=== PATIENT | female | born 1960 | race Caucasian/White ===

== ENCOUNTER 2016-10-01 13:58 | Inpatient (IN) | payer OTHER ==
--- NOTE | ~2016-10-01 | PN ---
Unit #: [id number] #: [id number] Patient: VASQUEZ WOODWARD [id number] [facility] [address] [place] [address] [id number] I MR#: [id number] NAME: VASQUEZ WOODWARD ROOM: P251 Age: 55 Sex: F Admission Date: 10/01/2016 : 1960 Attending Physician: Paolo Nathan M.D. Admitting Physician: Paolo Nathan M.D. Primary Care Physician: Primary Care Physician Etelvina AGUAYO NOTES DATE OF SERVICE 10/03/16 DISCUSSION Ms. Cobb is a 55-year-old female seen on 10/03/16. Patient interviewed, chart reviewed, I obtained information from nursing staff. Patient reports that she is still feeling confused, guarded, paranoid, isolative. Patient denied any other complaint. Patient compliant with medication. No agitation, aggression. COMPLETE REVIEW OF SYSTEMS Unremarkable. MENTAL STATUS EXAMINATION GENERAL APPEARANCE: Patient moderately obese, dressed casually. ATTENTION SPAN AND CONCENTRATION: Poor. Oriented in place and person. MOOD AND AFFECT: Labile. SPEECH: Monotone, slow. THOUGHT PROCESS: Circumstantial. Patient denied any thoughts of harming self or others, but somewhat guarded. RECENT AND REMOTE MEMORY: Poor. INSIGHT AND JUDGMENT: Poor. DIAGNOSIS Bipolar mood disorder, NOS ASSESSMENT/PLAN Advised to continue with current medication and therapeutic protocol. If needed, consider further adjustment in medication. Dictated by... Cony Cali/estiven TD: 10/05/2016 10:22 JOB #: [id number] Unit #: [id number] #: [id number] Patient: VASQUEZ WOODWARD HARLAN PROGRESS NOTES Page 1 of 1 X Paolo Nathan MD X PROGRESS NOTE
--- NOTE | ~2016-10-01 | PN ---
Unit #: [id number] #: [id number] Patient: VASQUEZ WOODWARD [id number] [facility] [address] [place] [address] [id number] MR#: [id number] NAME: VASQUEZ WOODWARD ROOM: P251 Age: 55 Sex: F Admission Date: 10/01/2016 : 1960 Attending Physician: Paolo Nathan M.D. Admitting Physician: Paolo Nathan M.D. Primary Care Physician: Primary Care Physician No HARLAN PROGRESS NOTES DATE 10/06/2016 DISCUSSION Ms. Cobb is a 55-year-old female seen on 10/06/2016. The patient interviewed, chart reviewed. Obtained information from nursing staff. The patient reports making progress. Sleeping good. Appetite fair. The patient was able to sleep good. Vital signs stable. No aggression and no confusion. Complete review of systems unremarkable. MENTAL STATUS EXAMINATION General appearance, the patient dressed casually. Attention span and concentration fair. Oriented to time, place and person. Mood and affect labile. Speech monotone. Thought process concrete. The patient denied any thoughts of harming self or others but guarded. Recent and remote memory poor. Insight and judgement poor. DIAGNOSES Mood disorder NOS ASSESSMENT/PLAN Advise to continue with current medication and therapeutic protocol. If needed consider further adjustment of medication. Dictated by... Cony Cali/mira TD: 10/09/2016 02:42 JOB #: [id number] PEAANDRE PROGRESS NOTES Page 1 of 1 X Paolo Nathan MD PROGRESS NOTE
--- NOTE | ~2016-10-01 | PN ---
Unit #: [id number] #: [id number] Patient: VASQUEZ WOODWARD [id number] [facility] [address] [place] [address] [id number] I MR#: [id number] NAME: VASQUEZ WOODWARD ROOM: P251 Age: 55 Sex: F Admission Date: 10/01/2016 : 1960 Attending Physician: Paool Nathan M.D. Admitting Physician: Paolo Nathan M.D. Primary Care Physician: Primary Care Physician Etelvina AGUAYO NOTES DATE OF SERVICE 10/04/16 DISCUSSION Ms. Cobb is a 55-year-old female seen on 10/04/16. Patient interviewed, chart reviewed, I obtained information from nursing staff. Patient was compliant, cooperative. Mood sad, dysphoric; flat affect, guarded. Patient reports that she is feeling better, decrease in confusion, paranoia and depression, compliant with medication. Patient was on too much medication - Thorazine was discontinued, seems to be doing fair, no agitation. COMPLETE REVIEW OF SYSTEMS Unremarkable. MENTAL STATUS EXAMINATION GENERAL APPEARANCE: Patient dressed casually, moderately obese. ATTENTION SPAN AND CONCENTRATION: Fair. Oriented in place and person. MOOD AND AFFECT: Labile. SPEECH: Monotone. THOUGHT PROCESS: [place]. Patient denied any thoughts of harming self or others, but guarded. RECENT AND REMOTE MEMORY: Poor. INSIGHT AND JUDGMENT: Poor. DIAGNOSIS Bipolar mood disorder, NOS ASSESSMENT/PLAN Advised to continue with current medication and therapeutic protocol. If needed, consider further adjustment in medication. Dictated by... Cony Cali/estiven TD: 10/05/2016 13:48 JOB #: [id number] Unit #: [id number] #: [id number] Patient: VASQUEZ WOODWARD PEAANDRE PROGRESS NOTES Page 1 of 1 X Paolo Nathan MD X PROGRESS NOTE
--- NOTE | ~2016-10-01 | CO ---
Unit #: [id number] #: [id number] Patient: VASQUEZ WOODWARD [id number] [place] [address] [id number] I MR#: [id number] NAME: VASQUEZ WOODWARD ROOM: P251 Age: 55 Sex: F Admission Date: 10/01/2016 : 1960 Attending Physician: Paolo Nathan M.D. Primary Care Physician: Primary Care Physician No Consultation Date: 10/03/2016 CONSULTATION REPORT SUBJECTIVE Vasquez is a 55-year-old, admitted on plethora of medications. We have been asked to review her medications. Please see orders related to this. Some of her medications which were duplicates were discontinued. Again please see orders dated 10/04/2016. Dictated by... Rebecca Roman P.A.-C. for Cony Javier/dominick TD: 10/11/2016 19:13 JOB #: [id number] CONSULTATION REPORT Page 1 of 1 X Rebecca Roman CONSULTATION REPORT
--- NOTE | ~2016-10-01 | PN ---
Unit #: [id number] #: [id number] Patient: VASQUEZ WOODWARD [id number] [facility] [address] [place] [address] [id number] I MR#: [id number] NAME: VASQUEZ WOODWARD ROOM: P251 Age: 55 Sex: F Admission Date: 10/01/2016 : 1960 Attending Physician: Paolo Nathan M.D. Admitting Physician: Paolo Nathan M.D. Primary Care Physician: Primary Care Physician Etelvina CLAROS PROGRESS NOTES DATE 10/02/2016 DISCUSSION Ms. Cobb is a 55-year-old female seen on 10/02/2016. The patient interviewed, chart reviewed. The patient's vital signs stable 97.8, 65, 18, 125/61. Height 5 feet 6 inches, weight 280 pounds. Mood sad, dysphoric, anxious, nervous. Complete review of systems unremarkable. MENTAL STATUS EXAMINATION General appearance, the patient dressed casually. Attention span and concentration fair. Oriented to place and person. Mood and affect labile. Speech monotone. Thought process concrete. The patient denied any thoughts of harming self or others but guarded, paranoid, withdrawn, isolative. Recent and remote memory poor. Insight and judgement poor. DIAGNOSES Schizoaffective disorder bipolar type. ASSESSMENT/PLAN Advise to continue with current medication and therapeutic protocol. If needed consider further adjustment of medication with a plan to consider taking her off to keep the medication minimum cutting back on her Thorazine stopping Thorazine and changing her Abilify to 15 mg twice daily. Dictated by... Cony Cali/mira TD: 10/03/2016 23:53 JOB #: [id number] Unit #: [id number] #: [id number] Patient: VASQUEZ WOODWARD HARLAN PROGRESS NOTES Page 1 of 1 X Paolo Nathan MD PROGRESS NOTE
--- NOTE | ~2016-10-01 | CO ---
Unit #: [id number] #: [id number] Patient: VASQUEZ WOODWARD [id number] [place] [address] [id number] I MR#: [id number] NAME: VASQUEZ WOODWARD ROOM: P251 Age: 55 Sex: F Admission Date: 10/01/2016 : 1960 Attending Physician: Paolo Nathan M.D. Primary Care Physician: Primary Care Physician No Consultation Date: 10/03/2016 CONSULTATION REPORT SUBJECTIVE Vasquez is a 55-year-old, admitted on a plethora of medications. We have been asked to review these and make changes if necessary/possible. Dictated by... Anny Chappell/dominick TD: 10/11/2016 19:35 JOB #: [id number] CONSULTATION REPORT Page 1 of 1 X Rebecca Roman CONSULTATION REPORT
--- NOTE | ~2016-10-01 | DS ---
Unit #: [id number] #: [id number] Patient: VASQUEZ WOODWARD [id number] [facility] [address] [place] [address] [id number] I MR#: [id number] NAME: VASQUEZ WOODWARD ROOM: [facility] Age: 55 Sex: F Admission Date: 10/01/2016 : 1960 Discharge Date: 10/07/2016 Attending Physician: Paolo Nathan M.D. Primary Care Physician: Primary Care Physician No DISCHARGE SUMMARY REASON FOR ADMISSION Altered mental status, confusion. DIAGNOSTIC STUDIES LABORATORY RESULTS: Remarkable for glucose 126, potassium 3.4. HOSPITAL COURSE The patient was admitted to inpatient unit on 10/01/2016 and discharged on 10/07/2016. The patient was continued on her home medication, but stopped Thorazine to keep the medication minimum as possible. The patient participated in all the programming and showed improvement. Subsequently, the patient was discharged with a plan to follow up in outpatient program. DISCHARGE MEDICATIONS Abilify 15 mg b.i.d. for mood stabilization. The patient to continue with her home medication; metformin, Norvasc, Zocor, Synthroid, Lamictal, Trintellix 20 mg daily for depression, Vistaril 25 mg as needed for anxiety, Diovan, Toprol, Nitrostat. DISCHARGE DIAGNOSES Psychiatric: Schizoaffective disorder, bipolar type, F25.9. Secondary diagnosis: Deferred. Medical diagnosis: Please refer to H and P. Stressors: Psychosocial stressors. DISCHARGE INSTRUCTIONS The patient to follow up in outpatient clinic as per manager social media. CONDITION ON DISCHARGE The patient was pleasant and cooperative. Denied any psychotic symptom or any suicidal ideation. PROGNOSIS Guarded. DIET AND ACTIVITY As tolerated. Dictated by... Unit #: [id number] #: [id number] Patient: VASQUEZ WOODWARD Paolo Nathan M.D. SZC/crystall TD: 10/08/2016 07:26 JOB #: [id number] DISCHARGE SUMMARY Page 1 of 1 X Paolo Nathan MD X DISCHARGE SUMMARY
--- NOTE | ~2016-10-01 | CO ---
Unit #: [id number] #: [id number] Patient: VASQUEZ WOODWARD [id number] [place] [address] [id number] I MR#: [id number] NAME: VASQUEZ WOODWARD ROOM: P251 Age: 55 Sex: F Admission Date: 10/01/2016 : 1960 Attending Physician: Paolo Nathan M.D. Primary Care Physician: Primary Care Physician No Consultation Date: 10/04/2016 CONSULTATION REPORT SUBJECTIVE Vasquez is a 55-year-old who complained of chest pain. Stat EKG was ordered. EKG showed normal sinus rhythm without acute changes. The patient was reassured. EKG will be sent out for over-read by applications support engineer. Dictated by... Rebecca Roman P.A.-C. for Cony Javier/dominick TD: 10/08/2016 22:33 JOB #: [id number] CONSULTATION REPORT Page 1 of 1 X Rebecca Roman CONSULTATION REPORT
--- NOTE | ~2016-10-01 | PA ---
Unit #: [id number] #: [id number] Patient: VASQUEZ WOODWARD [id number] [facility] [address] [place] [address] [id number] I MR#: [id number] NAME: VASQUEZ WOODWARD ROOM: P251 Age: 55 Sex: F Admission Date: 10/01/2016 : 1960 Date of Assessment: Attending Physician: Paolo Nathan M.D. Admitting Physician: Paolo Nathan M.D. Primary Care Physician: Primary Care Physician No PSYCHIATRIC ASSESSMENT INFORMANTS The patient's reliability, fair; chart reliability, good. CHIEF COMPLAINT Depression. HISTORY OF PRESENT ILLNESS Ms. Cobb is a 55-year-old female, presented to the emergency room due to severe mood changes. The patient admitted to [facility] emergency department. The patient was agitated and combative with staff upon arrival. The patient did not try to harm staff, but displayed increase in agitation, trying to touch her. The patient was given Geodon 20 mg. The patient stated that she is getting up and going to her rehab program for the [facility]. The patient stated that she is feeling paranoid, stated in the morning total blank. The patient stated that a similar episode in 07/2016, requiring inpatient treatment at crisis stabilization unit in [place], [place] for 3 to 4 days. The patient currently on disability for bipolar disorder, diagnosed with schizoaffective disorder. The patient lives alone and has a history of atrial fibrillation, diabetes, hypertension, hypercholesterolemia, sleep apnea. The patient sleeping 6 hours, appetite fair. Needing inpatient admission at this time for psychiatric stabilization. PAST PSYCHIATRIC HISTORY Remarkable for history of previous treatment at crisis stabilization unit in 07/2016, [facility] in 1994, [facility] in the past for bipolar disorder and schizoaffective disorder. FAMILY HISTORY AND SOCIAL HISTORY The patient lives alone, poor support system. The patient reports a history of psychiatric illness, bipolar disorder in two nieces and in maternal great uncle and history of depression in paternal aunt. No known history of any abuse. No legal programs. MEDICAL HISTORY Remarkable for history of multiple health conditions. The patient has a history of hypertension, diabetes, obesity, sleep apnea, atrial fibrillation, hypercholesterolemia. MEDICATION HISTORY The patient is on multiple medication on Zocor 10 mg daily, Imdur ER 30 mg b.i.d., chlorthalidone 25 mg daily, lisinopril 10 mg daily, Plavix 75 mg daily, Toprol-XL 25 mg daily, Diovan 320 mg daily, Catapres 0.3 mg b.i.d., Unit #: [id number] #: [id number] Patient: VASQUEZ WOODWARD Trintellix 20 mg daily, Lamictal 150 mg daily, Synthroid 0.05 mg daily, Thorazine 50 mg at bedtime, Coreg 25 mg b.i.d., Glucophage 500 mg b.i.d., Vistaril p.r.n., Abilify 30 mg daily, Thorazine 100 mg at bedtime. ALLERGIES No known drug allergies. SUBSTANCE ABUSE HISTORY None. REVIEW OF SYSTEMS HEENT: Eyes, clear. Ears, nose, mouth, and throat; clear. CARDIOVASCULAR: Unremarkable. RESPIRATORY: Unremarkable. GI: Unremarkable. : Unremarkable. SKIN: Unremarkable. LYMPH NODE: Unremarkable. NEUROLOGIC: Unremarkable. ENDOCRINE: Unremarkable. HEMATOLOGIC: Unremarkable. ALLERGIC/IMMUNOLOGIC: Unremarkable. MUSCULOSKELETAL: Muscle strength and tone, no atrophy or abnormal movement. Gait normal. MENTAL STATUS EXAMINATION CONSTITUTIONAL: Measurement of vital signs; temperature 97.8, pulse 65, respirations 18, blood pressure 125/61. Height 5 feet 6 inches, weight 280 pounds. GENERAL APPEARANCE: The patient moderately obese, dressed casually. No facial deformity noted. MUSCULOSKELETAL: Please see above. PSYCHIATRIC EXAMINATION Description of speech; regular rate, normal volume. Description of thought process, goal directed. Description of association, intact. Description of abnormal psychotic thinking; guarded, paranoid, but denied any thoughts of harming self or others. Description of the patient's judgment; concerning everyday activity, poor. Social situation, poor. Concerning psychiatric condition, poor. Complete mental status examination; oriented in time, place, and person. Recent and remote memory, fair. Attention span and concentration, fair. Language, able to name object and repeat phrases. Fund of knowledge, aware of current event and passive vocabulary intact. Mood and affect, sad and dysphoric. Insight and judgment, fair to poor. ASSETS AND LIABILITIES Assets; the patient articulate, able to take care of her ADL. Liability; history of depression, anxiety, agitation. ADMITTING DIAGNOSES Psychiatric: Schizoaffective disorder, bipolar type, F25.9. Secondary diagnosis: Deferred. Medical diagnosis: Please refer to H and P. Unit #: [id number] #: [id number] Patient: VASQUEZ WOODWARD Stressors: Psychosocial stressors. PSYCHIATRIC PLAN AND TREATMENT GOAL 1. Advised to admit the patient on the inpatient unit. Provide safe, supportive, and structured environment. 2. Ordered labs; CBC, CMP, UA, and UDS. 3. Precaution for self-harm, psychosis. 4. Advised to resume home medication. If needed, consider further adjustment of medication. Medical consultation to review the patient's home medication. The patient to attend all the programming with group therapy, individual therapy, family therapy if available. Treatment goal to attain euthymic mood, gain insight into her problem, and learn coping skills. DISCHARGE PLAN Plan to stabilize the patient and consider followup in outpatient program. ESTIMATED LENGTH OF STAY 5 to 7 days. Dictated by... Paolo Nathan M.D. ELIANA/dominick TD: 10/03/2016 02:56 JOB #: [id number] PSYCHIATRIC ASSESSMENT Page 1 of 1 X Paolo Nathan MD X PSYCHIATRIC ASSESSMENT
--- NOTE | ~2016-10-01 | HP ---
Unit #: [id number] #: [id number] Patient: VASQUEZ WOODWARD [id number] [place] [address] [id number] I MR#: [id number] NAME: VASQUEZ WOODWARD ROOM: P251 Age: 55 Sex: F Admission Date: 10/01/2016 : 1960 Attending Physician: Paolo Nathan M.D. Admitting Physician: Paolo Nathan M.D. Primary Care Physician: Primary Care Physician No HISTORY AND PHYSICAL HISTORY OF PRESENT ILLNESS Vasquez is a 55 year old admitted to [address] [place] [address] with depression. PAST MEDICAL HISTORY 1. Morbid obesity. 2. High blood pressure. 3. Diabetes mellitus. 4. Hyperlipidemia. 5. History of atrial fib. 6. Hypothyroidism. 7. Coronary artery disease. PAST SURGICAL HISTORY 1. Cholecystectomy. 2. Right total knee replaced. 3. Right ankle. ALLERGIES Codeine. SOCIAL HISTORY She denies cigarettes, alcohol and illicit drug use. FAMILY HISTORY Medically noncontributory. REVIEW OF SYSTEMS CONSTITUTIONAL: No fever or chills. HEENT: Denies any sore throat, ear pain or runny nose. CARDIOVASCULAR: Denies chest pain, irregular heart rhythm or palpitations. CHEST: Denies shortness of breath or cough. No hemoptysis. GASTROINTESTINAL: Denies nausea, vomiting, diarrhea or chronic constipation. ENDOCRINE: Denies history of increased thirst or urination. No recent significant weight loss or gain. GENITOURINARY: Denies dysuria, frequency, or hematuria. SKIN: Denies any rashes. HEMATOLOGIC: Denies history of increased bleeding or bruising. MUSCULOSKELETAL: Denies any hot, swollen joints. No generalized muscle pain. NEUROLOGIC: Denies problems with vision or speech. No frequent, severe headaches. No numbness, tingling or weakness in any extremities. Denies loss of bladder or bowel control. Unit #: [id number] #: [id number] Patient: VASQUEZ WOODWARD CURRENT MEDICATIONS 1. Zocor 10 mg daily. 2. Abilify 15 mg b.i.d. 3. Imdur ER 30 mg b.i.d. 4. Chlorthalidone 25 mg daily. 5. Lioresal 10 mg daily. 6. Plavix 75 mg daily. 7. Toprol XL 25 mg daily. 8. Diovan 325 mg daily. 9. Catapres 0.3 mg b.i.d. 10. Trintellix 20 mg daily. 11. Lamictal 150 mg daily. 12. Synthroid 0.05 mg daily. 13. Coreg 25 mg b.i.d. 14. Glucophage 500 mg daily. 15. Milk of Magnesia p.r.n. 16. Maalox p.r.n. 17. Tylenol p.r.n. PHYSICAL EXAMINATION GENERAL: Alert, morbidly obese, in no apparent distress. VITAL SIGNS: Blood pressure 124/60, heart rate 80, respirations 16, temperature 98.6. WEIGHT: 280. HEIGHT: 5 feet 6 inches. SKIN: Warm and dry without rash or lesion. HEENT: Normocephalic. TMs not viewed. Oral and nasal passages clear. Conjunctivae clear. PERRLA. EOMs intact. NECK: Supple without lymphadenopathy or thyromegaly. HEART: Rate and rhythm is regular with a 1/6 systolic murmur heard best down the left sterna border. LUNGS: Clear. ABDOMEN: Soft, nontender. : Not done. EXTREMITIES: No evidence of cyanosis, clubbing or edema. Moves all without focal deficit. NEUROLOGICAL: Grossly within normal limits. Cranial Nerves: II: Visual ivan are intact. III, IV AND : Extraocular movements are intact. Pupils are equal, round and reactive to light. V: Facial sensation is grossly normal. VII: Facial movements and expression are normal. VIII: Auditory acuity grossly intact. IX, X: Uvula is midline. Phonation is normal. XI: Patient shrugs shoulders and turns head normally. XII: Tongue protrudes in the midline. Sensory and Motor Function: Sensory and motor sensation is grossly normal. Motor: moves all extremities well. Coordination: Gait is normal. Deep Tendon Reflexes: Intact. IMPRESSION Psychiatric admission. RECOMMENDATIONS PSYCHIATRIC: Per psychiatrist. MEDICAL: See no contraindications to participate in facility's activities. MEDICAL PROGNOSIS Unit #: [id number] #: [id number] Patient: VASQUEZ WOODWARD. MEDICAL CONDITION Stable. Dictated by... Rebecca Roman P.A.-C. for Cony Javier/deonte TD: 10/02/2016 22:58 JOB #: [id number] HISTORY AND PHYSICAL Page 1 of 1 X Rebecca Roman HISTORY AND PHYSICAL
--- NOTE | ~2016-10-01 | PN ---
Unit #: [id number] #: [id number] Patient: VASQUEZ WOODWARD [id number] [facility] [address] [place] [address] [id number] I MR#: [id number] NAME: VASQUEZ WOODWARD ROOM: P251 Age: 55 Sex: F Admission Date: 10/01/2016 : 1960 Attending Physician: Paolo Nathan M.D. Admitting Physician: Paolo Nathan M.D. Primary Care Physician: Primary Care Physician Etelvina AGUAYO NOTES DATE 10/05/2016 DISCUSSION Ms. Cobb is a 55-year-old female seen on 10/05/2016. The patient interviewed, chart reviewed. Obtained information from nursing staff. The patient reports that she was not able to sleep as she did not have her C-PAP. The patient was sleepy this morning, compliant and cooperative. Reports feeling better. Complete review of systems unremarkable. MENTAL STATUS EXAMINATION General appearance, the patient dressed casually moderately obese laying comfortably in bed. Attention span and concentration fair. Oriented to place and person. Mood and affect sad, dysphoric. Speech regular rate. Thought process goal directed. The patient denied any thoughts of harming self or others but guarded. Recent and remote memory poor. Insight and judgement poor. DIAGNOSES Bipolar mood disorder NOS ASSESSMENT/PLAN Advise to continue with current medication and therapeutic protocol. If needed consider further adjustment of medication. Dictated by... Cony Cali/mira TD: 10/08/2016 01:57 JOB #: [id number] Unit #: [id number] #: [id number] Patient: VASQUEZ WOODWARD KATEANDRE PROGRESS NOTES Page 1 of 1 X Paolo Nathan MD X PROGRESS NOTE
[2016-10-02 09:36] LABS: BASOPHIL# 0.1 X10e3 (0-0.3); BASOPHIL% 0.9 % (0-2.5); EOSINOPHIL% 0.1 % (0.0-7.0); HEMATOCRIT 45.3 % (35.0-45.0); LYMPHOCYTE# 1.2 X10e3 (1.0-3.5); LYMPHOCYTE% 18.6 % (17.0-45.0); MEAN CELL VOLUME 84.2 FL (83-96); MEAN CORPUSCULAR HEMOGLOBIN 27.9 PG (28-34); MEAN CORPUSCULAR HGB CONC 33.1 g/dL (30-36); MEAN PLATELET VOLUME 8.6 FL (6.5-11.5); MONOCYTE# 0.5 X10e3 (0-1.0); MONOCYTE% 7.3 % (3.0-12.0); NEUTROPHIL# 4.9 X10e3 (1.5-7.1); NEUTROPHIL% 73.1 % (40-75); PLATELET COUNT 201 X10e3 (140-420); RED BLOOD COUNT 5.38 X10e (3.90-5.30); RED CELL DISTRIBUTION WIDTH 14.2 % (11.0-15.5); WHITE BLOOD COUNT 6.7 X10e3 (4.0-10.5)
[2016-10-02 09:40] LABS: DIFF IND NO
[2016-10-02 10:06] LABS: ALBUMIN SERUM 4.4 g/dL (3.5-5.0); BILIRUBIN,TOTAL 0.6 mg/dL (0.2-2.0); CALCIUM SERUM 9.7 mg/dL (8.4-10.2); GLOM FILT RATE Estimated 63.4 mL/min (>60); POTASSIUM 3.4 mmol/L (3.5-5.1); PROTEIN TOTAL SERUM 7.8 g/dL (6.0-8.3)
[2016-10-02 17:03] LABS: THYROID STIMULATING HORMONE 1.9 uIU/ml (0.34-5.60)
[2016-10-02 17:10] LABS: FREE THYROXIN (T4) 0.66 ng/dL (0.58-1.64)
[2016-10-06 12:57] LABS: URINE APPEARANCE CLEAR; URINE BILIRUBIN NEG (NEG); URINE BLOOD NEG (NEG); URINE COLOR YELLOW; URINE GLUCOSE NEG (NEG); URINE KETONE NEG (NEG); URINE LEUKOCYTE ESTERASE 3+ (NEG); URINE NITRATE NEG (NEG); URINE PH 5.5 (5-8); URINE PROTEIN NEG (NEG); URINE SPECIFIC GRAVITY 1.014 (1.003-1.035); URINE UROBILINOGEN 0.2 MG/DL (NEG)
[2016-10-06 13:04] LABS: URINE BACTERIA AUWI NEG (NEGATIVE); URINE SQUAMOUS EPITHELIAL CELL FEW /[HPF]
[2016-10-06 13:27] LABS: AMPHETAMINE NEG (NEG); BARBITURATES NEG (NEG); BENZODIAZEPINES NEG (NEG); COCAINE NEG (NEG); MARIJUANA NEG (NEG); OPIATES NEG (NEG); TRICYCLIC ANTIDEPRESSANTS NEG (NEG); U METHADONE NEG (NEG)
== END 2016-10-07 09:40 | disposition home or self-care (01) | DRG 885 ==
LOC: P2L 17:26
PROVIDERS: Psychiatry & Neurology Psychiatry
DX: F25.0 Schizoaffective disorder, bipolar type (principal); I48.91 Unspecified atrial fibrillation; I10 Essential (primary) hypertension; E11.9 Type 2 diabetes mellitus without complications; E78.00 Pure hypercholesterolemia, unspecified; G47.30 Sleep apnea, unspecified; Z81.8 Family history of other mental and behavioral disorders; E03.9 Hypothyroidism, unspecified; I25.10 Atherosclerotic heart disease of native coronary artery without angina pectoris; Z90.49 Acquired absence of other specified parts of digestive tract; Z96.651 Presence of right artificial knee joint; Z88.5 Allergy status to narcotic agent
CPT/HCPCS: 80053; 80307; 81003; 82947; 84439; 84443; 85025